=== PATIENT | female | born 1965 | race Caucasian/White ===

== ENCOUNTER 2016-09-21 13:03 | Outpatient (CLI) | payer BC, OTHER ==
[2016-09-21] MEDS ORDERED: BUFFERED LIDOCAINE 10 ML SYRINGE IU ONE (14:39)
[2016-09-21] MEDS ORDERED: GADOPENTETATE DIMEGLUMINE 5 ML VIAL IVP ONE (14:39)
[2016-09-21] MEDS ORDERED: IOTHALAMATE MEGLUMINE 50 ML VIAL IVP ONE (14:39)
== END 2016-09-21 13:04 | disposition home or self-care (01) ==
DX: S73.191A Other sprain of right hip, initial encounter (principal); M16.0 Bilateral primary osteoarthritis of hip
CPT/HCPCS: 20610; 73722; 77002; Q9961

== ENCOUNTER 2017-02-01 14:46 | Outpatient (CLI) | payer BC, OTHER ==
--- NOTE | 2017-02-01 19:01 | MRI Report ---
EXAM: MRI LUMBAR SPINE WITHOUT CONTRAST EXAM DATE: 02/01/2017 03:17 PM. CLINICAL HISTORY: Low back pain radiating to the right hip and foot for 2-3 months. COMPARISON: None. TECHNIQUE: Multiplanar, multisequence T1-weighted and fluid-sensitive sequences of the lumbar spine f rom T12 to S1 without contrast. Other: None. FINDINGS: Spinal Cord: The conus terminates at L1. No signal abnormality in the visualized spinal cord. Alignment: Normal. No scoliosis or spondylolisthesis. Bone Marrow: Five [id number] lumbar vertebral bodies are assumed. There is Modic type I change a t the anterior margin of the L1-L2 endplates. Disk Levels/Facets: T12-L1: Unremarkable. L1-L2: Unremarkable. L2-L3: Unremarkable. L3-L4: Unremarkable. L4-L5: Mild disk desiccation. L5-S1: Unremarkable. Musculature: Normal. No edema or fatty atrophy. Other: The visualized pelvic cavity is unremarkable. IMPRESSION: Minimal degenerative change at L1-L2. Comment: The following findings are so common in adults without low back pain that while we report th eir presence, they must be interpreted with caution and in the context of the clinical situation. (Re johny Doan et al, Spine 2001) Prevalence of findings in patients without low back pain: Disk degeneration (any evidence): 92% Disk desiccation/T2 signal loss: 83% Disk height loss: 56% Disk bulge: 64% Disk protrusion: 32% Annular tear/high intensity zone: 38% [facility] Referring Provider Line: [phone] SITE ID: [id number]
== END 2017-02-01 14:47 | disposition home or self-care (01) ==
LOC: DI 14:46
PROVIDERS: ATTEND Orthopaedic Surgery
DX: M51.36 Other intervertebral disc degeneration, lumbar region (principal)
CPT/HCPCS: 72148

== ENCOUNTER 2018-05-16 16:20 | Observation (INO) | payer BC, OTHER ==
[2018-05-16] MEDS ORDERED: METOCLOPRAMIDE 10 MG/2 ML VIAL IVP STA (16:57)
[2018-05-16] MEDS ORDERED: SODIUM CHLORIDE 0.9% 1,000 ML IV ONE (16:57)
[2018-05-16] MEDS ORDERED: KETOROLAC 15 MG/ML VIAL IVP STA (16:57)
[2018-05-16] MEDS ORDERED: diphenhydrAMINE INJ 50 MG/ML VIAL IVP STA (16:57)
[2018-05-16] MEDS ORDERED: PROPARACAINE 0.5% OPHTH DROPS 15 ML EACHEYE STA (16:58)
--- NOTE | 2018-05-16 16:59 | ED Physician Documentation ---
History of Present Illness - Stated complaint Stated Complaint: BLURRED VISION/POST OP - Chief complaint Chief Complaint: Neuro - History obtained from History obtained from: Patient - Additonal information Additional information: 52-year-old female presents the emergency department with 2 days of a headache on the top of her head which is associated with bilateral blurred vision and dizziness. The patient reports Awakening with her symptoms yesterday morning, the symptoms have been ongoing and progressively worsening. The patient denies any ocular pain, eye redness, eye trauma, eye swelling. The patient denies any motor or sensory changes, speech difficulty or confusion. The patient denies any radiation into her neck. Symptoms are described as moderate. No triggering factors. No relieving factors. No other associated symptoms. The patient reports the dizziness as a feeling of off balance, the dizziness does not improve with position and does not worsen. Review of Systems Constitutional: denies: Fever, Fatigue Eyes: reports: Other (Blurred vision). denies: Loss of vision, Decreased vision, Photophobia, Discharge, Reviewed and negative Ears: denies: Ear pain Nose: denies: Congestion Throat: denies: Sore throat Cardiac: denies: Chest pain / pressure, Palpitations Respiratory: denies: Cough GI: denies: Abdominal Pain, Nausea : denies: Dysuria Skin: denies: Rash, Laceration (s) Musculoskeletal: denies: Neck pain, Extremity pain Neurologic: reports: Headache. 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 : None HEENT: None Psych: None Musculoskeletal: None Derm: None - Past Surgical History Past Surgical History: Yes General: Cholecystectomy Ortho: Carpal Tunnel surgery, Other /PROTECTOR PLATE ATTACHER: Tubal ligation, Hysterectomy - Present Medications Home Medications: Ambulatory Orders Medication Instructions Recorded Confirmed Albuterol Sulf [Ventolin Hfa 2 puffs 05/16/18 Inhaler] Ascorbic Acid [Vitamin C] 1 tab 05/16/18 Bupropion HCl [Bupropion Xl] 1 tab 05/16/18 Hydrocodone/Acetaminophen [Vicodin 1 tab 05/16/18 5-300 mg Tablet] Ibuprofen 600 mg PO 05/16/18 Teriflunomide [Aubagio] 7 mg DAILY 05/16/18 05/16/18 Triamterene/Hydrochlorothiazid 1 tab 05/16/18 [Triamterene-Hctz 75-50 mg Tab] traZODone [Desyrel] 100 mg 05/16/18 - Allergies Allergies/Adverse Reactions: Allergies Allergy/AdvReac Type Severity Reaction Status Date / Time codeine Allergy Unknown Verified 05/16/18 16:34 glatiramer (copolymer 1) Allergy Unknown Verified 05/16/18 16:34 [From Copaxone] interferon beta-1a Allergy Unknown Verified 05/16/18 16:34 [From Avonex] sulfamethoxazole Allergy Unknown Verified 05/16/18 16:34 [From Septra] trimethoprim [From Septra] Allergy Unknown Verified 05/16/18 16:34 - Social History Does the pt smoke?: No Smoking Status: Never smoker Does the pt drink ETOH?: No Does the pt have substance abuse?: No - Immunizations Immunizations are current?: Yes - POLST Patient has POLST: No PD ED PE NORMAL - General General: Alert and oriented X 3, No acute distress - HEENT HEENT: Atraumatic, PERRL, EOMI, Ears normal - Neck Neck: Supple, no meningeal sign - Cardiac Cardiac: RRR, Strong equal pulses - Respiratory Respiratory: No respiratory distress, Clear bilaterally - Abdomen Abdomen: Soft, Non tender, Non distended - Back Back: No CVA TTP - Derm Derm: Normal color - Extremities Extremities: No tenderness to palpate, Normal ROM s pain - Neuro Neuro: Alert and oriented X 3, 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, No motor deficit, No sensory deficit, Normal speech - Psych Psych: Normal mood Results - Vitals Vitals: Vital Signs - 24 hr 05/16/18 05/16/18 05/16/18 16:24 18:44 19:39 Temperature 36.2 C L Heart Rate 71 60 59 L Respiratory 16 16 16 Rate Blood Pressure 150/94 H 127/79 142/81 H O2 Saturation 97 98 97 05/16/18 20:42 Temperature Heart Rate 63 Respiratory 16 Rate Blood Pressure 137/75 H O2 Saturation 95 Oxygen O2 Source Room air - Labs Labs: Laboratory Tests 05/16/18 05/16/18 17:28 17:28 ESR 24 Sodium 139 Potassium 3.6 Chloride 98 L Carbon Dioxide 30 Anion Gap 11.0 BUN 18 Creatinine 0.9 Estimated GFR (MDRD) 65 L Glucose 100 Calcium 9.4 Total Bilirubin 0.7 AST 28 ALT 39 Alkaline Phosphatase 49 Total Protein 7.5 Albumin 4.2 Globulin 3.3 Albumin/Globulin Ratio 1.3 Lipase 31 - Rads (name of study) CTA head/neck Radiology: Final report received (Postcontrast CT head: 1. Negative. CT angiogram head: 1. Patent major arteries of the brain, with normal anatomical variability as described. No aneurysm, dissection, stenosis, AVM. 2. Patent major veins. CT angiogram neck: 1. Widely patent aortic arch, bilateral carotid and vertebral arteries. No aneurysm, dissection, stenosis, or AVM. 2. Soft tissue neck negative. 3. Osseous structures unremarkable. ), See rad report PD MEDICAL DECISION MAKING - ED course ED course: The patient's presentation was discussed with the on-call neurologist from [facility]. Given the patient's history of multiple sclerosis and her new findings he recommends doing a CT angiogram of the head and neck to rule out any embolic lesion or issue with the posterior circulation. If there is no acute findings regarding that he would recommend performing an MRI with and without contrast of the head in the morning to further evaluate the patient's symptoms. The patient still has nausea vomiting ongoing dizziness, her headache has improved but she continues to have blurred vision. The patient will require admission for an MRI in the morning with and without IV contrast. The case was discussed with the hospitalist Dr. Dunn who accepts the patient onto his service. The findings and plan were discussed with the family and patient understand and agree to plan. Departure - Departure Disposition: ED Place in Observation Clinical Impression: Dizziness, Blurred vision, bilateral, Multiple sclerosis Headache Qualifiers: Headache type: unspecified Headache chronicity pattern: unspecified pattern Intractability: not intractable Qualified Code(s): R51 - Headache
[2018-05-16 17:49] LABS: ALBUMIN 4.2 g/dL (3.2-5.5); ALBUMIN/GLOBULIN RATIO 1.3 (1.0-2.2); BILIRUBIN,TOTAL 0.7 mg/dL (0.2-1.0); CALCIUM 9.4 mg/dL (8.5-10.3); CREATININE 0.9 mg/dL (0.4-1.0); TOTAL PROTEIN 7.5 g/dL (6.7-8.2)
--- NOTE | 2018-05-16 18:17 | CT Report ---
Reason: YOUNG with b/l blurred vision, h/o MS Procedure Date: 05/16/2018 Accession Number: [id number] / [id number] Procedure: CT - Head W/O CPT Code: FULL RESULT: EXAM: CT HEAD EXAM DATE: 05/16/2018 05:56 PM. CLINICAL HISTORY: Headache. Blurred vision and double vision. Reported history of multiple sclerosis. COMPARISON: No previous CT. Brain 10/07/2008 9:00 PM. TECHNIQUE: Multiaxial CT images were obtained from the foramen magnum to the vertex. Reformats: Sagittal and coronal. IV contrast: None. In accordance with CT protocol optimization, one or more of the following dose reduction techniques were utilized for this exam: automated exposure control, adjustment of mA and/or KV based on patient size, or use of iterative reconstructive technique. FINDINGS: No acute abnormality such as hemorrhage, cerebral cortical infarct or hydrocephalus. No mass effect or midline shift. Grossly normal brain volume for age. White matter hypoattenuation consistent with the given diagnosis of MS is seen in the left cerebral hemisphere. No acute appearing sinus or mastoid disease. Intact calvarium. Symmetric and unremarkable CT appearance of the orbits. IMPRESSION: No CT evidence for acute intracranial abnormality. [facility]
[2018-05-16] MEDS ORDERED: MECLIZINE 12.5 MG TABLET PO STA (18:21)
[2018-05-16] MEDS ORDERED: IOVERSOL 320 100 ML VIAL IVP ONE ×2 (19:07→19:40)
--- NOTE | 2018-05-16 20:16 | CT Report ---
Reason: Headache, blurred vision, dizziness Procedure Date: 05/16/2018 Accession Number: [id number] / [id number] Procedure: CT - Neck Angio CPT Code: FULL RESULT: EXAM: CT ANGIOGRAM HEAD AND NECK. CT SCAN HEAD WITHOUT AND WITH CONTRAST. EXAM DATE:05/16/2018 07:10 PM. CLINICAL HISTORY:Headache, blurred vision, dizziness. COMPARISON:Prior unenhanced CT head performed earlier today. Prior MRI brain 10/07/2008. TECHNIQUE: Routine axial helical CTA imaging was performed from the aortic arch through the [place] of Guevara. Routine axial CT imaging of the head was performed prior to and following contrast administration. Reconstructions: Routine multiplanar 3D MIP reconstructions. IV contrast: 72 cc Optiray 320. NASCET Criteria are used for stenosis measurements. In accordance with CT protocol optimization, one or more of the following dose reduction techniques were utilized for this exam: automated exposure control, adjustment of mA and/or KV based on patient size, or use of iterative reconstructive technique. Findings: Relevant images are indicated (image number, series number). Postcontrast CT head: No abnormal enhancement of the brain, meninges. CT angiogram head: Left ICA: Widely patent. Patent MCA, DAISY distribution. Right ICA: Widely patent including MCA, DAISY distribution. Posterior circulation: Patent distal bilateral vertebral arteries, basilar artery, patent bilateral DIRECTOR OF SUSTAINABILITY distribution, origin right DIRECTOR OF SUSTAINABILITY. Prominent left PCOM. Patent major draining veins. CT angiogram neck: Aortic arch: Widely patent, normal configuration of the great vessels. Left carotid artery: Widely patent. Right carotid artery: Widely patent. Left vertebral artery: Nondominant vessel, patent. Right vertebral artery: Dominant vessel, widely patent. Limited evaluation lung apices are unremarkable. Soft tissue structures of the neck are unremarkable, thyroid nonenlarged, and repeat. Osseous structures are unremarkable. Impressions: Postcontrast CT head: 1. Negative. CT angiogram head: 1. Patent major arteries of the brain, with normal anatomical variability as described. No aneurysm, dissection, stenosis, AVM. 2. Patent major veins. CT angiogram neck: 1. Widely patent aortic arch, bilateral carotid and vertebral arteries. No aneurysm, dissection, stenosis, or AVM. 2. Soft tissue neck negative. 3. Osseous structures unremarkable. [facility]
--- NOTE | 2018-05-16 20:16 | CT Report ---
Reason: Headache, blurred vision, dizziness Procedure Date: 05/16/2018 Accession Number: [id number] / [id number] Procedure: CT - Head Angio CPT Code: FULL RESULT: EXAM: CT ANGIOGRAM HEAD AND NECK. CT SCAN HEAD WITHOUT AND WITH CONTRAST. EXAM DATE:05/16/2018 07:10 PM. CLINICAL HISTORY:Headache, blurred vision, dizziness. COMPARISON:Prior unenhanced CT head performed earlier today. Prior MRI brain 10/07/2008. TECHNIQUE: Routine axial helical CTA imaging was performed from the aortic arch through the [place] of Guevara. Routine axial CT imaging of the head was performed prior to and following contrast administration. Reconstructions: Routine multiplanar 3D MIP reconstructions. IV contrast: 72 cc Optiray 320. NASCET Criteria are used for stenosis measurements. In accordance with CT protocol optimization, one or more of the following dose reduction techniques were utilized for this exam: automated exposure control, adjustment of mA and/or KV based on patient size, or use of iterative reconstructive technique. Findings: Relevant images are indicated (image number, series number). Postcontrast CT head: No abnormal enhancement of the brain, meninges. CT angiogram head: Left ICA: Widely patent. Patent MCA, DAISY distribution. Right ICA: Widely patent including MCA, DAISY distribution. Posterior circulation: Patent distal bilateral vertebral arteries, basilar artery, patent bilateral RN SECURITY distribution, origin right RN SECURITY. Prominent left PCOM. Patent major draining veins. CT angiogram neck: Aortic arch: Widely patent, normal configuration of the great vessels. Left carotid artery: Widely patent. Right carotid artery: Widely patent. Left vertebral artery: Nondominant vessel, patent. Right vertebral artery: Dominant vessel, widely patent. Limited evaluation lung apices are unremarkable. Soft tissue structures of the neck are unremarkable, thyroid nonenlarged, and repeat. Osseous structures are unremarkable. Impressions: Postcontrast CT head: 1. Negative. CT angiogram head: 1. Patent major arteries of the brain, with normal anatomical variability as described. No aneurysm, dissection, stenosis, AVM. 2. Patent major veins. CT angiogram neck: 1. Widely patent aortic arch, bilateral carotid and vertebral arteries. No aneurysm, dissection, stenosis, or AVM. 2. Soft tissue neck negative. 3. Osseous structures unremarkable. [facility]
[2018-05-16] MEDS ORDERED: diazePAM 5 MG TABLET PO STA (21:35)
[2018-05-16] MEDS ORDERED: ACETAMINOPHEN 325 MG TABLET PO PRN (21:39)
[2018-05-16] MEDS ORDERED: ONDANSETRON 4 MG/2 ML VIAL IVP PRN (21:39)
[2018-05-16] MEDS ORDERED: PROCHLORPERAZINE 10 MG/2 ML VIAL IVP PRN (21:39)
[2018-05-16] MEDS ORDERED: SODIUM CHLORIDE FLUSH 0.9% 10 ML SYRINGE IVP PRN (21:39)
[2018-05-16] MEDS ORDERED: MORPHINE 2 MG/ML CARPUJECT IVP PRN (21:39)
[2018-05-16] MEDS ORDERED: ZOLPIDEM 5 MG TABLET PO PRN (21:39)
[2018-05-17] MEDS ORDERED: KETOROLAC 15 MG/ML VIAL IVP PRN (01:00)
--- NOTE | 2018-05-17 01:05 | HISTORY & PHYSICAL EXAMINATION ---
Chief Complaint - Chief Complaint Chief Complaint: Headache and blurry vision History of Present Illness - Admitted From Admitted From:: Emergency department - History Obtained From Records Reviewed: Emergency department History obtained from: Patient and ED physician Exam Limitations: None - History of Present Illness HPI Comment/Other: Patient is a 52-year-old female with a past medical history including multiple sclerosis and hypertension who presents to the emergency department with a 2-day history of progressively worsening frontal headache with bilateral blurry vision.Patient cannot think of any antecedent events to initiate this including no trauma, no changes in medications, no significant increases in blood pressure. She describes the blurry vision as similar to when pupils are dilated for an eye exam. She denies any other neurological symptoms such as weakness, numbness, motor deficits, fevers, vision loss, etc. A CT scan of the head was performed which was relatively unremarkable. The emergency room physician contacted the neurologist on-call at [facility] where the patient had been a patient of for some time before only recently switching to the [facility].The recommendation from the neuro hospitalist at [facility] was to perform a CT angiogram of the head and neck, and after reviewing the results with the ED physician the next recommendation was to keep the patient overnight for an MRI in the morning to determine if this is a an MS flareup. If it is, the recommendation will be to transfer the patient to [facility] and if not pending the results of the MRI either treatment of headache can be initiated or results will be addressed accordingly. History - Past Medical History Cardiovascular: reports: None Respiratory: reports: None Neuro: reports: Headaches, Other Endocrine/Autoimmune: reports: None, Other GI: reports: None SUPERVISOR LAUNDRY: reports: None : reports: None HEENT: reports: None Psych: reports: Depression Musculoskeletal: reports: None Derm: reports: None MRSA Hx?: No Other Past Medical History: MS - Past Surgical History General: reports: Cholecystectomy Ortho: reports: Carpal Tunnel surgery, Other /SUPERVISOR LAUNDRY: reports: Tubal ligation, Hysterectomy - Family & Social History Family History: Mother: CAD, Diabetes, Type 2, Father: CAD - POLST Patient has POLST: No Meds/Allgy - Home Medications Home Medications: Ambulatory Orders Medication Instructions Recorded Confirmed Albuterol Sulf [Ventolin Hfa 2 puffs 05/16/18 Inhaler] Ascorbic Acid [Vitamin C] 1 tab 05/16/18 Bupropion HCl [Bupropion Xl] 1 tab 05/16/18 Hydrocodone/Acetaminophen [Vicodin 1 tab 05/16/18 5-300 mg Tablet] Ibuprofen 600 mg PO 05/16/18 Teriflunomide [Aubagio] 7 mg DAILY 05/16/18 05/16/18 Triamterene/Hydrochlorothiazid 1 tab 05/16/18 [Triamterene-Hctz 75-50 mg Tab] traZODone [Desyrel] 100 mg 05/16/18 - Allergies Allergies/Adverse Reactions: Allergies Allergy/AdvReac Type Severity Reaction Status Date / Time codeine Allergy Unknown Verified 05/16/18 16:34 glatiramer (copolymer 1) Allergy Unknown Verified 05/16/18 16:34 [From Copaxone] interferon beta-1a Allergy Unknown Verified 05/16/18 16:34 [From Avonex] sulfamethoxazole Allergy Unknown Verified 05/16/18 16:34 [From Septra] trimethoprim [From Septra] Allergy Unknown Verified 05/16/18 16:34 Review of Systems - Constitutional Constitutional: reports: Fatigue. denies: Fever, Chills, Weakness - Eyes Eyes: reports: Blurred vision. denies: Pain, Irritation, Amaurosis, Spots in vision, Field loss, Vision loss, Dipolpia - Ears, Nose & Throat Ears, Nose & Throat: denies: Ear pain - Cardiovascular Cariovascular: denies: Irregular heart rate, Palpitations, Chest pain, Lightheadedness - Respiratory Respiratory: denies: Cough, SOB at rest, SOB with exertion - Gastrointestinal Gastrointestinal: denies: Abdominal pain, Abdominal distention, Constipation, Diarrhea, Change in bowel habits - Genitourinary Genitourinary: denies: Dysuria, Frequency - Musculoskeletal Musculoskeletal: denies: Muscle pain - Neurological Neurological: reports: Headache, Dizziness. denies: General weakness, Focal weakness, Numbness, Memory problems, Pre-existing deficit, Seizures, Incoordination, Slurred speech - All Other Systems All Other Systems: reports: Reviewed and negative Prior Level of Functionality: Independent however she is no longer working due to difficulty during multiple sclerosis flareups. Exam - Vital Signs Reviewed Vital Signs: Yes Vital Signs: Vital Signs x48h Temp Pulse Pulse Resp BP BP Pulse Ox 05/16/18 23:34 36.4 C L 62 15 106/65 92 05/16/18 22:17 36.4 C L 64 18 114/71 96 05/16/18 21:43 70 16 108/67 97 05/16/18 20:42 63 16 137/75 H 95 05/16/18 19:39 59 L 16 142/81 H 97 05/16/18 18:44 60 16 127/79 98 - Physical Exam General Appearance: positive: No acute distress Eyes Bilateral: positive: Normal inspection, PERRL, EOMI ENT: positive: ENT inspection nml Neck: positive: Nml inspection Respiratory: positive: Chest non-tender, No respiratory distress, Breath sounds nml. negative: Wheezes, Rales, Rhonchi Cardiovascular: positive: Regular rate & rhythm, No murmur, No gallop, Irreg ularly irregular Peripheral Pulses: positive: 2+ Extremities: positive: Other (Her left wrist is in a splint due to recent carpal tunnel surgery) Neurologic/Psychiatric: positive: Oriented x3, CN's nml (2-12), Motor nml, Sens ation nml, Mood/affect nml Conclusion/Plan - Problem List (1) Blurred vision, bilateral Conclusion/Plan: Possible MS flareup, MRI pending in the morning. Less likely CVA versus TIA. (2) Dizziness Conclusion/Plan: Likely related to the same etiology as the headache, again same plan with MRI in the morning (3) Headache Conclusion/Plan: As above, possible MS flareup. Continue Toradol given that CT has ruled out a hemorrhagic stroke, as needed for headache pain, follow-up MRI results in the morning. Qualifiers: Headache type: unspecified Headache chronicity pattern: unspecified pattern Intractability: not intractable Qualified Code(s): R51 - Headache (4) Multiple sclerosis Conclusion/Plan: Plan is to follow-up MRI results in the morning and will likely need to reconsult the neurologist on-call at [facility] neurology. - Lab Results Lab results reviewed: Yes Harsh Bones: 05/16/18 17:28 - Diagnostic Imaging Results Diagnostic Imaging Results: positive: Final report reviewed Core Measures - Anticipated LOS I expect patient to be DC'd or transferred within 96 hours.: Yes - DVT/VTE - Prophylaxis VTE/DVT Device ordered at admit?: Yes
[2018-05-17] MEDS: SODIUM CHLORIDE FLUSH 0.9% 10 ML SYRINGE IVP SCH ×2 (06:27→08:26)
[2018-05-17] MEDS ORDERED: PANTOPRAZOLE 40 MG VIAL IVP SCH (07:00)
[2018-05-17] MEDS ORDERED: POLYETHYLENE GLYCOL 3350 17 GM PACKET PO SCH (09:00)
[2018-05-17] MEDS ORDERED: TERIFLUNOMIDE 7 MG PO SCH (12:00)
[2018-05-17] MEDS ORDERED: GADOBUTROL 7.5 MMOL/7.5 ML VIAL ONE (12:05)
[2018-05-17] MEDS ORDERED: GADOBUTROL 7.5 MMOL/7.5 ML VIAL IVP ONE (12:32)
--- NOTE | 2018-05-17 13:12 | DISCHARGE SUMMARY ---
Discharge Summary Admit Date: 05/16/18 Discharge Date: 05/17/18 Discharging Provider: JAKE Arriaga Code Status: Attempt Resuscitation Condition at Discharge: Good Discharge Disposition: 01 Home, Self Care - DIAGNOSES Admission Diagnoses: Other visual disturbances (H53.8) Headache (R51) Multiple sclerosis (G35) Discharge Diagnoses with Status of Each Condition: Acute sinusitis (J01.90) new on this admission, patient is continue on prescribed nasal sprays. Blurred vision (H53.8) resolved. Headache (R51) improved. MS (multiple sclerosis) (G35) chronic, stable. Carpal tunnel syndrome (G56.00) left wrist, with bandage in place. - HPI History of Present Illness: HPI per Dr. Dunn: Patient is a 52-year-old female with a past medical history including multiple sclerosis and hypertension who presents to the emergency department with a 2-day history of progressively worsening frontal headache with bilateral blurry vision.Patient cannot think of any antecedent events to initiate this including no trauma, no changes in medications, no significant increases in blood pressure. She describes the blurry vision as similar to when pupils are dilated for an eye exam. She denies any other neurological symptoms such as weakness, numbness, motor deficits, fevers, vision loss, etc. A CT scan of the head was performed which was relatively unremarkable. The emergency room physician contacted the neurologist on-call at [facility] where the patient had been a patient of for some time before only recently switching to the [facility].The recommendation from the neuro hospitalist at [facility] was to perform a CT angiogram of the head and neck, and after reviewing the results with the ED physician the next recommendation was to keep the patient overnight for an MRI in the morning to determine if this is a an MS flareup. If it is, the recommendation will be to transfer the patient to [facility] and if not pending the results of the MRI either treatment of headache can be initiated or results will be addressed accordingly. - HOSPITAL COURSE Hospital Course: All imaging shows no acute abnormalities, including no infarctions, no bleeding and no evidence of a progression of the patient's MS. It was noted that the patient underwent surgery for her left wrist carpal tunnel syndrome just days prior. It was concluded that after getting oxygen, intubation and the whole surgical process, she may have been suffering from acute sinusitis because of where she described her headaches to be. A full HEENT exam was completed and her bilateral tympanic membranes where inverted, with fluid noted. She was mildly tender on her forehead with palpation and near her temples. She was given a 3 day course of Afrin and encouraged to continue daily Flonase indefinitely. Her was at the bedside and she was medically stable upon discharge. - ALLERGIES Allergies/Adverse Reactions: Allergies Allergy/AdvReac Type Severity Reaction Status Date / Time codeine Allergy Unknown Verified 05/16/18 16:34 glatiramer (copolymer 1) Allergy Unknown Verified 05/16/18 16:34 [From Copaxone] interferon beta-1a Allergy Unknown Verified 05/16/18 16:34 [From Avonex] sulfamethoxazole Allergy Unknown Verified 05/16/18 16:34 [From Septra] trimethoprim [From Septra] Allergy Unknown Verified 05/16/18 16:34 - MEDICATIONS Home Medications: Ambulatory Orders Medication Instructions Recorded Confirmed Albuterol Sulf [Ventolin Hfa 2 puffs 05/16/18 Inhaler] Ascorbic Acid [Vitamin C] 1 tab 05/16/18 Bupropion HCl [Bupropion Xl] 1 tab 05/16/18 Hydrocodone/Acetaminophen [Vicodin 1 tab 05/16/18 5-300 mg Tablet] Ibuprofen 600 mg PO 05/16/18 Teriflunomide [Aubagio] 7 mg DAILY 05/16/18 05/16/18 Triamterene/Hydrochlorothiazid 1 tab 05/16/18 [Triamterene-Hctz 75-50 mg Tab] traZODone [Desyrel] 100 mg 05/16/18 Fluticasone [Flonase] 1 sprays KIM DAILY #1 bottle 05/17/18 Oxymetazoline HCl [Afrin] 15 ml NS BID 3 Days #1 spray 05/17/18 - PHYSICAL EXAM AT DISCHARGE General Appearance: positive: No acute distress, Alert Eyes Bilateral: positive: PERRL ENT: positive: ENT inspection nml, Pharynx nml, No signs of dehydration Neck: positive: Thyroid nml, No JVD, Trachea midline Respiratory: positive: Chest non-tender, No respiratory distress, Breath sounds nml Cardiovascular: positive: Regular rate & rhythm, No murmur, No gallop Peripheral Pulses: positive: 2+ Abdomen: positive: Non-tender, No organomegaly, Nml bowel sounds Back: positive: Nml inspection Skin: positive: Color nml, No rash, Warm, Dry Extremities: positive: Non-tender, Full ROM, Nml appearance, No pedal edema Neurologic/Psychiatric: positive: Oriented x3, CN's nml (2-12), Motor nml, Sensation nml, Mood/affect nml Reflexes: Bicep (R): 3+, Bicep (L): 3+ - LABS Result Diagrams: 05/16/18 17:28 - DIAGNOSTIC IMAGING Diagnostic Imaging Results: Final report reviewed Diagnostic Imaging Results Comments: EXAM: CT HEAD EXAM DATE: 05/16/2018 05:56 PM. IMPRESSION: No CT evidence for acute intracranial abnormality. EXAM: CT ANGIOGRAM HEAD AND NECK. CT SCAN HEAD WITHOUT AND WITH CONTRAST. EXAM DATE:05/16/2018 07:10 PM. Impressions: Postcontrast CT head: 1. Negative. CT angiogram head: 1. Patent major arteries of the brain, with normal anatomical variability as described. No aneurysm, dissection, stenosis, AVM. 2. Patent major veins. CT angiogram neck: 1. Widely patent aortic arch, bilateral carotid and vertebral arteries. No aneurysm, dissection, stenosis, or AVM. 2. Soft tissue neck negative. 3. Osseous structures unremarkable. EXAM: MRI BRAIN WITHOUT AND WITH CONTRAST EXAM DATE: 05/17/2018 12:33 PM. IMPRESSION: 1. No MRI evidence for acute intracranial abnormality. 2. Stable cerebral white matter disease consistent with multiple sclerosis but no evidence for interval lesion burden progression or activity. - SEPSIS Current Stage of Sepsis: Ruled out - FOLLOW UP Follow Up: Disposition: 01 Home, Self Care Condition: Good Prescriptions: Fluticasone [Flonase] 1 sprays KIM DAILY #1 bottle Oxymetazoline HCl [Afrin] 15 ml NS BID 3 Days #1 spray Additional Instructions or Follow Up instructions: You were watched overnight after coming to the ED with complaints of a headache concerning for exacerbation of your MS or stroke symptoms. All testing was normal in regards to your head imaging. You shared that you just underwent carpel tunnel surgery, which is concerning since you are given oxygen as a standard of care during and after surgery. A common side effect of oxygen is that it dries out your sinus cavities which is the most likely cause of your vision changes and headaches. I have prescribed Afrin spray to be used for 6 doses or for 3 days, daily flonase spray to be taken indefinitely and saline spray for comfort. Please see your PCP within one week/or other specialist. - TIME SPENT Time Spent in Discharge (Minutes): 45
--- NOTE | 2018-05-17 13:16 | MRI Report ---
Reason: dizziness, and blurry vision, r/o MS flare up Procedure Date: 05/17/2018 Accession Number: [id number] / [id number] Procedure: MRI - Brain W/WO CPT Code: FULL RESULT: EXAM: MRI BRAIN WITHOUT AND WITH CONTRAST EXAM DATE: 05/17/2018 12:33 PM. CLINICAL HISTORY: Dizziness and blurred vision. Multiple sclerosis. COMPARISON: BRAIN 10/07/2008 9:00 PM. TECHNIQUE: Multiplanar, multisequence T1-weighted and fluid-sensitive MR sequences of the brain were performed. Sequences optimized for white matter evaluation. Other: None. IV Contrast: Without and with 7.5 mL Gadavist. FINDINGS: No restricted diffusion to suggest acute or recent ischemic infarct. No cerebral hemorrhage. No mass effect, midline shift or abnormal subdural fluid collection. Grossly normal brain volume for age. No hydrocephalus. Again seen are multiple foci of abnormal white matter T2 hyperintensity that is in a pattern consistent with the given diagnosis of multiple sclerosis. Stable notable small lesion at the medial right cerebral vertex, dominant periventricular lesion in the left frontoparietal region with extension into the adjacent corpus callosum and in the left frontal anterior juxtacortical white matter. These T2 hyperintense lesions appear stable and chronic. A tiny subcortical T2 hyperintensity also appears stable at the anterior inferior and medial margin of the right frontal lobe. Minimal ill-defined periventricular white matter T2 hyperintensity also appears stable at the lateral right margin of the corpus callosum body as previously demonstrated associated with volume loss. Unremarkable findings in the posterior fossa. No evidence for focal plaque-like new cerebral white matter lesion or enhancement to suggest disease progression or activity. No acute appearing sinus or mastoid disease. The major arterial skull base flow voids are present. IMPRESSION: 1. No MRI evidence for acute intracranial abnormality. 2. Stable cerebral white matter disease consistent with multiple sclerosis but no evidence for interval lesion burden progression or activity. RADIA
[2018-05-17 13:37] VITALS: BP 133/73
[2018-05-17] MEDS ORDERED: OXYMETAZOLINE NASAL SPRAY NAS SCH (14:10)
[2018-05-17] MEDS ORDERED: SODIUM CHLORIDE 0.65% NASAL SPRAY NAS PRN (14:11)
--- NOTE | 2018-05-17 14:19 | Discharge Plan ---
Discharge Plan Disposition: 01 Home, Self Care Condition: Good Prescriptions: Fluticasone [Flonase] 1 sprays KIM DAILY #1 bottle Oxymetazoline HCl [Afrin] 15 ml NS BID 3 Days #1 spray Diet: Regular Activity Restrictions: Activity as Tolerated Shower Restrictions: No Driving Restrictions: No Additional Instructions or Follow Up instructions: You were watched overnight after coming to the ED with complaints of a headache concerning for exacerbation of your MS or stroke symptoms. All testing was normal in regards to your head imaging. You shared that you just underwent carpel tunnel surgery, which is concerning since you are given oxygen as a standard of care during and after surgery. A common side effect of oxygen is that it dries out your sinus cavities which is the most likely cause of your vision changes and headaches. I have prescribed Afrin spray to be used for 6 doses or for 3 days, daily flonase spray to be taken indefinitely and saline spray for comfort. Please see your PCP within one week/or other specialist. No Smoking: If you smoke, Please STOP! Call for help.
[2018-05-18] MEDS ORDERED: FLUTICASONE NASAL SPRAY NAS SCH (09:00)
== END 2018-05-17 14:50 | disposition home or self-care (01) ==
LOC: ED 16:20 → OBS 21:39
PROVIDERS: ADMIT Family Medicine Sports Medicine; ATTEND Nurse Practitioner
DX: J01.90 Acute sinusitis, unspecified (principal); H53.8 Other visual disturbances; G35 Multiple sclerosis; I10 Essential (primary) hypertension; F39 Unspecified mood [affective] disorder; Z98.890 Other specified postprocedural states
CPT/HCPCS: 36415; 70450; 70496; 70498; 70553; 80053; 83690; 85651; 96361; 96374; 96375; 99284; A9270; A9585; G0378; J1200; J2765; J3490; Q9967